=== PATIENT | female | born 1965 | race Caucasian/White ===

== ENCOUNTER → 2017-02-21 | Outpatient (CLI) | payer OTHER ==
[~2017-02-21] MED LIST: ATIVAN1 MG PO; AUGMENTIN1 TA2 PO; CHEWABLE ASPIRI81 MG PO; FLEXERIL10 MG PO; HYDROCHLOROTHIA25 M1 PO; HYDROCODONE/ACE1 TA5 PO; KEFLEX500 M1 PO; LORTAB 5/500 501 TAB PO; NAPROSYN 500MG500 MG PO; RANITIDINE HCL150 MG PO; RED YEAST RICE600 MG PO
--- NOTE | 2017-02-26 13:00 | RADIOLOGY REPORT PS360 ---
DIG MAMM-SCREEN TREVER W/CAD CAD Screening COMPARISON: Digital mammograms 02/20/2016 and 04/28/2015 INDICATION: There is no personal or family history of breast cancer TECHNIQUE: Standard CC and MLO images were obtained. R2 CAD reviewed. FINDINGS: The breasts are composed primarily of fat with minimal scattered fibroglandular densities throughout each breast. There are stable asymmetric densities in each breast. There is no new or suspicious lesion in either breast and there are no suspicious microcalcifications. There is a benign-appearing calcification deep within the left breast. IMPRESSION: Stable exam no suspicious lesion seen recommend yearly follow-up BI-RADS CATEGORY: 2_Benign RECOMMENDED FOLLOWUP: 12M 12 MONTH FOLLOW-UP (A letter has been sent to the patient regarding results of the study.)
== END ==
LOC: RAD 08:07
DX: Z12.31 Encounter for screening mammogram for malignant neoplasm of breast (principal)
CPT/HCPCS: G0202